=== PATIENT | male | born 1950 | race Caucasian/White ===

== ENCOUNTER 2017-05-23 15:39 | Emergency (ER) | payer MEDICARE ==
[~2017-05-23] VITALS: Ht 172.7 cm; Wt 95.3 kg
--- NOTE | 2017-05-23 16:12 | Emergency Room Report ---
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 N Clinical Suspician of Infection? N Mental Status: 1 - Regular (Normal Baseline) Sepsis Risk:Low Sepsis Risk Have you (or family members/close friends) recently traveled outside the [place]? N If Yes, where/when: Have you had exposure to infectious disease within the past month? N TB? Other? Specify: Patient with diffuse myalgias, five family members with strep pharyngitis. He has progressively felt bad since about noon today, and no relief of myalgias and diffuse concomitant cephalgia with ES Tylenol. No vomiting. No chest pain. No fever or diaphoresis. No syncope or palpitations. Left ear feels full. His daughter thinks he looks SOB,but he does not c/o SOB or cough. No calf pain. No acute unilateral sx. ALLERGIES Coded Allergies: No Known Allergies (05/23/17) Home Medications Reported Medications METFORMIN HCL (Metformin) 1,000 MG PO BID Losartan Potassium (Losartan 100MG) 100 MG PO DAILY Levothyroxine Sodium (Synthroid 0.05MG) 0.05 MG PO DAILY Simvastatin (Simvastatin 40MG Tab) 40 MG PO QHS Atenolol (Atenolol) 12.5 MG PO DAILY PAROXETINE HCL (Paxil) 20 MG PO DAILY Canagliflozin (Invokana) 300 MG PO DAILY Aspirin (Aspi-Cor) 162 MG PO DAILY INSULIN NPH HUM/REG INSULIN HM (Novolin 70-30 100 Unit/Ml Vial) 20 UNITS SC BID History Medical History General CAD? No Angina: No FL: No Hypertension? Yes Hyperlipidemia? Yes CHF? No DVT? No PE? No COPD? No Asthma? No Anemia? No GERD? No Gastric ulcers? No GI Bleed? No Hernia? No Thyroid Problems? Yes Hypothyroidism? Yes CVA? No Seizures? No Diabetes? Yes Insulin Dependent: Yes Insulin Pump: No Home FSBS? Yes Renal Insuffiency? No End Stage Renal Disease? No UTI? No Stones? Yes BPH? No GB Disease: No Nephritic Syndrome? No Asplenia? No Hepatitis? Yes Sickle Cell Disease? No Arthritis? Yes Migraines? No Cataracts? No Glaucoma? No MRSA? No HIV? No TB? No Anxiety? No Depression? Yes Cancer? No More? No Immunization Hx DT/Tetanus 1-4 Years Ago Flu 2016-17FSN Pneumonia Received In Past Surgical Hx Previous Surgery?Y TONSILLECTOMY LEFT ROTATOR CUFF REPAIR RIGHT ROTATOR CUFF REPAIR Social History Alcohol Alcohol: No Review of Systems All Other Systems Reviewed and Negative Constitutional see HPI, malaise ENT see HPI. Musculoskeletal see HPI Physical Exam Vital Signs Vital Signs Date Time Temp Pulse Resp B/P Pulse O2 O2 Flow FiO2 Ox Delivery Rate 05/23 1912 82 16 129/70 93 05/23 191 86 20 129/70 94 05/23 1832 16 05/23 1807 82 16 138/71 94 05/23 1658 90 16 123/75 95 05/23 1545 98.8 90 16 147/78 92 General Appearance normal appearance, WD/WN, no apparent distress Eye Exam - bilateral eye normal exam, bilateral eye PERRL, bilateral eye EOMI Ear, Nose, Throat hearing grossly normal, normal ENT inspection, normal pharynx (OP wet) Neck normal inspection, non-tender, supple, full range of motion (no meningismus ) Respiratory Status Yes: trachea midline, chest symmetrical, non tender chest. No: respiratory distress, tender on palpation, use of accessory muscles, pain on inspiration, pain on expiration, productive cough, non productive cough. Lung Sounds bilateral: normal breath sounds, lungs clear. 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 Glascow Coma Scale Glascow Coma Scale Response Value EYE response: 4 Spontaneously 4 MOTOR response: 6 OBEYS 6 VERBAL response: 5 Oriented & Converses 5 Total 15 Reflexes Reflexes normal Yes DTR 2+ ankle (R), 2+ ankle (L) Skin intact, normal color (no petechiae or purpura) Lymphatic no adenopathy Medical Decision Making LABS/Meds/Orders Pt receiving controlled substance in ED? No Results/Orders Laboratory Tests 05/23/17 1705: Urine Color YELLOW, Urine Appearance CLEAR, Urine pH 5.5, Ur Specific [place] 1.015, Urine Protein NEGATIVE, Urine Ketones NEGATIVE, Urine Blood NEGATIVE, Urine Nitrate NEGATIVE, Urine Bilirubin NEGATIVE, Urine Urobilinogen 0.2, Ur Leukocyte Esterase NEGATIVE, Urine RBC OCC, Urine WBC NONE, Ur Squamous Epith Cells NONE, Urine Bacteria NONE, Urine Glucose 3+ H 05/23/17 1605: Lactic Acid 1.7 05/23/17 1600: Sodium 138, Potassium 4.1, Chloride 103, Carbon Dioxide 25, BUN 19 H, Creatinine 1.1, Estimated Creat Clear 87, Estimated GFR (MDRD) 67, Glucose 158 H, Calcium 8.6, Total Bilirubin 0.4, AST 11 L, ALT 21, Alkaline Phosphatase 85, Creatine Kinase 186, CK-MB (CK-2) Rel Index 0.3, CK and CKMB Interp < 0.5, Troponin I < 0.02, Total Protein 7.7, Albumin 3.9, Globulin 3.8 H, Albumin/ Globulin Ratio 1.0 L, WBC 10.1, RBC 5.11, Hgb 14.8, Hct 44.8, MCV 87.5, RDW 13.2, Plt Count 275, MPV 7.5, Gran % 92.7 H, Gran # 9.4 H, Total Counted 100, Lymphocytes % 3.0 L, Monocytes % 3.0, Eosinophils % 1.0, Basophils % 0.3, Neutrophils 92 H, Lymphocytes (Manual) 4 L, Lymphocytes # 0.3 L, Monocytes ( Manual) 3, Monocytes # 0.3, Eosinophils # 0.1, Eosinophils # (Manual) 1, Basophils # 0.0, Platelet Estimate NORMAL, PUBS MCHC 33.0, MCH 28.8, Influenza Type A Ag NOT DETECTED, Influenza Type B Ag NOT DETECTED Current Medication Orders Sig/Corey Start time Last Medication Dose Route Stop Time Status Admin Ketorolac 15 MG ONCE ONE 05/23 1830 DC 05/23 Tromethamine IV 05/23 1831 1832 Ketorolac 0 .STK-MED ONE 05/23 1828 DC Tromethamine .ROUTE Sodium Chloride 10 ML PRN PRN 05/23 1615 AC IV 05/24 1605 Orders Procedure Date/time Status DIET-NOTHING BY MOUTH 05/23 D Active LACTIC ACID 05/23 1809 Complete ELECTROCARDIOGRAM REQUEST 05/[address] HEAD REQ 05/23 1606 Complete IV SALINE LOCK 05/23 1606 Active CULTURE, BLOOD 05/23 1606 Active URINALYSIS/COMPLETE 05/23 1606 Complete STREP SCREEN THROAT 05/23 1606 Complete INFLUENZA A&B ANTIGENS 05/23 1606 Complete CBC WITH AUTO DIFF 05/23 1606 Complete CARDIAC ENZYMES 05/23 1606 Complete CHEM 12 PROFILE 05/23 1606 Complete CULTURE, THROAT 05/23 1600 Active DIFFERENTIAL-WBC 05/23 1600 Complete 12 LEAD EKG-JAYME (INITIAL) 05/23 UNK Active CM/EKG CM/EKG EKG rate, NSR, rhythm, no evid. of ischemic chgs, no ectopy, normal QRS, normal MA, normal EKG XRAY/CT/US XRAY/CT/US XRAY chest XR interpretation by reviewed by me Xray Results normal/NAD (CM neg acute per radiology) CT head CT interpretation by reviewed by me Time results known: 1822 CT Results abnormal (sphenoid sinusitis neg acute) Progress ED Progress Notes 1 Date 05/23/17 Time 181 Comment Patient able to ambulate to bathroom. Feeling somewhat better, but has a temp of 99. Toradol IV. CT shows sinusitis. ED Progress Notes 2 Date 05/23/17 Time 1824 Comment Patient sitting up drinking water, no complaints, neurologically intact, no meningismus, no cephalgia, has not yet received Toradol IV. Departure Departure Time of Disposition 1924 Disposition DC Home or Self Care(routine) Clinical Impression Primary Impression: Sphenoid sinusitis Qualifiers: Chronicity: acute Recurrence: non-recurrent Qualified Code: J01.30 - Acute sphenoidal sinusitis, unspecified Secondary Impressions: Cephalgia Qualifiers: Headache type: unspecified Headache chronicity pattern: unspecified pattern Intractability: not intractable Qualified Code: R51 - Headache Myalgia Condition STABLE Referrals Lobo Gallegos MD Additional Instructions See Dr. Gallegos for follow up in one day; Rx Augmentin and Naproxen Discharge Counseling Counseled pt/family regarding diagnosis, test results, medications/RX, home care, follow up needs Prescriptions Current Visit Scripts Amoxicillin/Potassium Clav (Augmentin 875-125 Tablet) 1 EACH PO BID #20 TAB NAPROXEN (NAPROXEN 500MG TAB) 500 MG PO BIDP PRN pain #10 TAB ED Critical Care Critical Care No at 1926
[2017-05-23 16:39] LABS: HEMOGLOBIN 14.8 g/dL (14.1-18.0); LYMPH # 0.3 K/mm3 (0.7-4.5)
[2017-05-23 16:42] LABS: STREP SCREEN (RAPID) NEGATIVE
[2017-05-23 16:58] LABS: BUN 19 mg/dL (7-18)
[2017-05-23 17:04] LABS: GFR (ESTIMATED) 67 ML/MIN (>60)
[2017-05-23 17:14] LABS: NEUTROPHILS 92 % (42-76)
--- NOTE | 2017-05-23 17:16 | RADIOLOGY REPORT PS360 ---
CT HEAD W/O CONTRAST HISTORY: MAILAISE,MYALGIAS CEPHALGIA GEN WEAKNESS ORDERING PHYSICIAN: Sandra West MD PATIENT AGE: 66 years COMPARISON: None TECHNIQUE: Axial images obtained without contrast. Brain and bone windows reviewed. FINDINGS: No midline shift, mass effect, intracranial hemorrhage, hydrocephalus, or extra-axial fluid collection is evident. There is mild generalized atrophy with nonspecific calcification within the right basal ganglia. The calvarium has an unremarkable appearance. No mastoid effusion. There is opacification of the left aspect of the sphenoid sinus. IMPRESSION: 1. No acute intracranial findings. 2. Left sphenoid sinus disease.
--- NOTE | 2017-05-23 17:52 | RADIOLOGY REPORT PS360 ---
CHEST-PORTABLE HISTORY: malaise myalgias ORDERING PHYSICIAN: Sandra West MD PATIENT AGE: 66 years COMPARISON: 05/19/2007 FINDINGS: There are low lung volumes. There is mild cardiomegaly without failure. No lobar consolidation or collapse evident. Vascular carotid is present in the lung bases. No acute bony anomalies. IMPRESSION: Cardiomegaly, no acute finding
[2017-05-23 17:59] LABS: URINE BILIRUBIN - DIPSTICK NEGATIVE (NEG); URINE BLOOD NEGATIVE (NEG)
[2017-05-23 19:46] VITALS: BP 138/81
--- OUTSIDE RECORDS SUMMARY | 2017-06-15 05:17 | External Medical Summary Rpt ---
Author Author [employer] Organization [employer] Address Unknown Phone Unavailable Purpose Continuity of Care Document - through 2016
--- OUTSIDE RECORDS SUMMARY | 2017-06-15 05:17 | External Medical Summary Rpt ---
Author Author , YASIR TURKKERI Address Unknown Phone [email or web address] Purpose Continuity of Care Document - 10-15-2016 through 2016 Results Labs Lab Lab Date Result Refere Interp Status Commen Order Detail nces retati t Range on Urinalysis dipstick W Reflex Microscopic panel in Urine (05-23-2017 17:05) Bacteri 05-23- NONE O complet a 017 ed [Presen 17:05 ce] in Urine sedimen t by Light microsc opy Erythro 05-23- OCC 0 complet cytes 017 ed [Presen 17:05 ce] in Urine sedimen t by Light microsc opy Epithel NONE OCC complet ial 017 ed cells.s 17:05 quamous [Presen ce] in Urine sedimen t by Microsc opy high power field Urinalysis dipstick W Reflex Microscopic panel in Urine (05-23-2017 17:05) Appeara CLEAR CLEAR complet nce of 017 ed Urine 17:05 Bilirub 05-23- NEGATIV NEG complet in 017 E ed [Presen 17:05 ce] in Urine by Test strip Erythro NEGATIV NEG complet cytes 017 E ed [Presen 17:05 ce] in Urine Color YELLOW YELLOW complet of 017 ed Urine 17:05 Ketones 05-23-2 NEGATIV NEG complet 017 E ed [Presen 17:05 ce] in Urine by Automat ed test strip Mucus 05-23-2 NEGATIV NEG complet [Presen 017 E ed ce] in 17:05 Urine sedimen t by Light microsc opy Nitrite 05-23-2 NEGATIV NEG complet 017 E ed [Presen 17:05 ce] in Urine by Test strip Urobili 05-23- 0.2 NEG complet nogen 017 ed [Presen 17:05 ce] in Urine by Test strip Differential panel, method unspecified - (05-23-2017 16:00) LYMPH 09-18-2 4 % 10% - Low complet 017 50% ed 16:00 Platele NORMAL complet ts 017 ed [Presen 16:00 ce] in Blood by Light microsc opy Influenza virus A+B Ag [Presence] in Unspecified specimen (05-23-2017 16:00) Influen NOT NOT complet za 017 DETECTE DETECTD ed virus A 16:00 D Ag [Presen ce] in Unspeci fied specime n Influen NOT NOT complet za 017 DETECTE DETECTD ed virus B 16:00 D Ag [Presen ce] in Unspeci fied specime n Streptococcus pyogenes Ag [Presence] in Unspecified specimen (05-23-2017 16:00) Strepto NEGATIV complet coccus 017 E ed pyogene 16:00 s Ag [Presen ce] in Unspeci fied specime n Bas Metab 2000 Pnl SerPl (10-15-2016 11:22) Comment: Meter: [id number] 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
--- OUTSIDE RECORDS SUMMARY | 2017-06-15 05:17 | External Medical Summary Rpt ---
Author Author [employer], [employer] Organization [employer] Address Unknown Phone Unavailable Results Urinalysis dipstick W Reflex Microscopic panel in Urine Observa Value Referen Units Interpr Notes Date tion ce etation Range Appeara CLEAR CLEAR No No No Sep 18 nce of informa informa informa 2017 Urine tion in tion in tion in 5:05 PM source source source data data data Bacteri NONE O No No No Sep 18 a informa informa informa 2017 [Presen tion in tion in tion in 5:05 PM ce] in source source source Urine data data data sedimen t by Light microsc opy Bilirub NEGATIV NEG No No No Sep 18 in E informa informa informa 2017 [Presen tion in tion in tion in 5:05 PM ce] in source source source Urine data data data by Test strip Erythro NEGATIV NEG No No No Sep 18 cytes E informa informa informa 2017 [Presen tion in tion in tion in 5:05 PM ce] in source source source Urine data data data Color YELLOW YELLOW No No No Sep 18 of informa informa informa 2017 Urine tion in tion in tion in 5:05 PM source source source data data data Glucose NEG No High No Sep 18 [Mass/vol informati informati 2017 5:05 ume] in on in on in PM Urine by source source Test data data strip Ketones NEGATIV NEG mg/dL No No Sep 18 E informa informa 2017 [Presen tion in tion in 5:05 PM ce] in source source Urine data data by Automat ed test strip Mucus NEGATIV NEG No No No Sep 18 [Presen E informa informa informa 2017 ce] in tion in tion in tion in 5:05 PM Urine source source source sedimen data data data t by Light microsc opy Nitrite NEGATIV NEG No No No Sep 18 E informa informa informa 2017 [Presen tion in tion in tion in 5:05 PM ce] in source source source Urine data data data by Test strip pH of 5.0 - 8.5 No Normal No Sep 18 Urine informati informati 2017 5:05 on in on in PM source source data data Protein NEG mg/dL No No Sep 18 [Mass/vol informati informati 2017 5:05 ume] in on in on in PM Urine by source source Automated data data test strip Erythro OCC 0 rbc/hpf No No Sep 18 cytes informa informa 2017 [Presen tion in tion in 5:05 PM ce] in source source Urine data data sedimen t by Light microsc opy Specific 1.005 - No Normal No Sep 18 gravity 1.030 informati informati 2017 5:05 of Urine on in on in PM source source data data Epithel NONE OCC #/hpf No No Sep 18 ial informa informa 2017 cells.s tion in tion in 5:05 PM quamous source source data data [Presen ce] in Urine sedimen t by Microsc opy high power field Urobili 0.2 NEG E.U./dL No No Sep 18 nogen informa informa 2017 [Presen tion in tion in 5:05 PM ce] in source source Urine data data by Test strip Leukocyte O wbc/hpf No No Sep 18 s informati informati 2017 5:05 [#/volume on in on in PM ] in source source Urine data data Urinalysis dipstick W Reflex Microscopic panel in Urine Observa Value Referen Units Interpr Notes Date tion ce etation Range Appeara CLEAR CLEAR No No No Sep 18 nce of informa informa informa 2017 Urine tion in tion in tion in 5:05 PM source source source data data data Bilirub NEGATIV NEG No No No Sep 18 in E informa informa informa 2017 [Presen tion in tion in tion in 5:05 PM ce] in source source source Urine data data data by Test strip Erythro NEGATIV NEG No No No Sep 18 cytes E informa informa informa 2017 [Presen tion in tion in tion in 5:05 PM ce] in source source source Urine data data data Color YELLOW YELLOW No No No Sep 18 of informa informa informa 2017 Urine tion in tion in tion in 5:05 PM source source source data data data Glucose NEG No High No Sep 18 [Mass/vol informati informati 2017 5:05 ume] in on in on in PM Urine by source source Test data data strip Ketones NEGATIV NEG mg/dL No No Sep 18 E informa informa 2017 [Presen tion in tion in 5:05 PM ce] in source source Urine data data by Automat ed test strip Mucus NEGATIV NEG No No No Sep 18 [Presen E informa informa informa 2016 ce] in tion in tion in tion in 5:05 PM Urine source source source sedimen data data data t by Light microsc opy Nitrite NEGATIV NEG No No No Sep 18 E informa informa informa 2016 [Presen tion in tion in tion in 5:05 PM ce] in source source source Urine data data data by Test strip pH of 5.0 - 8.5 No Normal No Sep 18 Urine informati informati 2016 5:05 on in on in PM source source data data Protein NEG mg/dL No No Sep 18 [Mass/vol informati informati 2016 5:05 ume] in on in on in PM Urine by source source Automated data data test strip Specific 1.005 - No Normal No Sep 18 gravity 1.030 informati informati 2016 5:05 of Urine on in on in PM source source data data Urobili 0.2 NEG E.U./dL No No Sep 18 nogen informa informa 2016 [Presen tion in tion in 5:05 PM ce] in source source Urine data data by Test strip Lactate [Moles/volume] in Blood Observa Value Referen Units Interpr Notes Date tion ce etation Range Lactate 0.4 - 2.0 mmol/L Normal No Sep 18 [Moles/vo informati 2016 4:05 lume] in on in PM Blood source data CBC W Auto Differential panel in Blood Observa Value Referen Units Interpr Notes Date tion ce etation Range Basophils 0 - 0.2 K/MM3 Normal No Sep 18 informati 2017 4:00 [#/volume on in PM ] in source Blood by data Automated count Basophils 0.1 - 2.0 % Normal No Sep 18 /100 informati 2016 4:00 leukocyte on in PM s in source Blood by data Automated count Eosinophi 0.0 - 0.4 K/mm3 Normal No Sep 18 ls informati 2017 4:00 [#/volume on in PM ] in source Blood by data Automated count Eosinophi 0.1 - % Normal No Sep 18 ls/100 12.0 informati 2016 4:00 leukocyte on in PM s in source Blood by data Automated count Granulocy 1.3 - 8.0 K/mm3 High No Sep 18 reanna informati 2016 4:00 [#/volume on in PM ] in source Blood by data Automated count Granulocy 37.0 - % High No Sep 18 reanna/100 80.0 informati 2016 4:00 leukocyte on in PM s in source Blood by data Automated count Hematocri 42.0 - % Normal No Sep 18 t [Volume 52.0 informati 2016 4:00 on in PM Fraction] source of Blood data Hemoglobi 14.1 - g/dL Normal No Sep 18 n 18.0 informati 2016 4:00 [Mass/vol on in PM ume] in source Blood data Lymphocyt 0.7 - 4.5 K/mm3 Low No Sep 18 es informati 2017 4:00 [#/volume on in PM ] in source Unspecifi data ed specimen by Automated count Lymphocyt 10 - 50 % Low No Sep 18 es informati 2016 4:00 [#/volume on in PM ] in source Unspecifi data ed specimen by Automated count Erythrocy 27 - 31.2 pg Normal No Sep 18 te mean informati 2016 4:00 corpuscul on in PM ar source hemoglobi data n [Entitic mass] Erythrocy 31.8 - g/dl Normal No Sep 18 te mean 35.4 informati 2016 4:00 corpuscul on in PM ar source hemoglobi data n concentra tion [Mass/vol ume] by Automated count Erythrocy 82.2 - fl Normal No Sep 18 te mean 97.8 informati 2016 4:00 corpuscul on in PM ar volume source [Entitic data volume] by Automated count Monocytes 0.1 - 1.0 K/mm3 Normal No Sep 18 informati 2016 4:00 [#/volume on in PM ] in source Blood by data Automated count Monocytes 1.7 - 9.3 % Normal No Sep 18 /100 informati 2016 4:00 leukocyte on in PM s in source Blood by data Automated count Platelet 7.4 - fl Normal No Sep 18 mean 10.4 informati 2016 4:00 volume on in PM [Entitic source volume] data in Blood by Automated count Platelets 142 - 424 K/mm3 Normal No Sep 18 inform 2017 4:00 [#/volume on in PM ] in source Blood data Erythrocy 4.6 - 6.2 M/mm3 Normal No Sep 18 reanna informati 2016 4:00 [#/volume on in PM ] in source Amniotic data fluid Erythrocy 11.5 - % Normal No Sep 18 te 17.5 informati 2016 4:00 distribut on in PM ion width source [Entitic data volume] by Automated count Leukocyte 4.8 - K/MM3 Normal No Sep 18 s 10.8 informati 2016 4:00 [#/volume on in PM ] in source Blood data Differential panel, method unspecified - Observa Value Referen Units Interpr Notes Date tion ce etation Range Eosinophi 0 - 3 % Normal No Sep 18 ls/100 informati 2016 4:00 leukocyte on in PM s in source Blood by data Manual count LYMPH 4 10 - 50 % Low No Sep 18 2016 tion in 4:00 PM source data Monocytes 2 - 9 % Normal No Sep 18 /100 informati 2017 4:00 leukocyte on in PM s in source Blood by data Automated count Platele NORMAL No No No No Sep 18 ts informa informa informa informa 2016 [Presen tion in tion in tion in tion in 4:00 PM ce] in source source source source Blood data data data data by Light microsc opy Neutrophi 42 - 76 % High No Sep 18 ls informati 2016 4:00 [#/volume on in PM ] in source Blood by data Automated count Cells No #CELLS No No Sep 18 Counted informati informati informati 2016 4:00 Total [#] on in on in on in PM in Blood source source source data data data Influenza virus A+B Ag [Presence] in Unspecified specimen Observa Value Referen Units Interpr Notes Date tion ce etation Range Influen NOT NOT No No No Sep 18 za DETECTE DETECTD informa informa informa 2017 virus A D tion in tion in tion in 4:00 PM Ag source source source [Presen data data data ce] in Unspeci fied specime n Influen NOT NOT No No No Sep 18 za DETECTE DETECTD informa informa informa 2017 virus B D tion in tion in tion in 4:00 PM Ag source source source [Presen data data data ce] in Unspeci fied specime n Streptococcus pyogenes Ag [Presence] in Unspecified specimen Observa Value Referen Units Interpr Notes Date tion ce etation Range Strepto NEGATIV No No No No Sep 18 coccus E informa informa informa informa 2017 pyogene tion in tion in tion in tion in 4:00 PM s Ag source source source source [Presen data data data data ce] in Unspeci fied specime n
--- OUTSIDE RECORDS SUMMARY | 2017-06-15 05:17 | External Medical Summary Rpt ---
Demographics Preferred Language Lithuanian Marital Status Unknown [employer] Affiliation Unknown Race Unknown Ethnic Group Unknown Author Author YASIR Address Unknown Phone Immunization No patient found.
--- OUTSIDE RECORDS SUMMARY | 2017-06-15 05:17 | External Medical Summary Rpt ---
Demographics Preferred Language Vietnamese Marital Status Unknown [employer] Affiliation Unknown Race Unknown Ethnic Group Unknown Author Author YASIR Address Unknown Phone Immunization No patient found.
--- OUTSIDE RECORDS SUMMARY | 2017-06-15 05:17 | External Medical Summary Rpt ---
Author Author , YASIR TURKKERI Address Unknown Phone [email or web address] Purpose Continuity of Care Document - 10-15-2016 [...] 2000 Pnl SerPl (10-15-2016 11:22) Comment: Meter: [id number] Plug Stitcher: [id number] [facility] Glucose 212 70-130 complet BldC 017 mg/dL ed Glucomt 11:22 r-mCnc Potassium Bld-sCnc (10-15-2016 11:02) Potassi 4.29 3.5-5.3 complet um 017 mmol/L ed BldA-sC 11:02 nc
== END 2017-05-23 19:46 | disposition home or self-care (01) ==
LOC: ER 15:39
PROVIDERS: Emergency Medicine
DX: J01.30 Acute sphenoidal sinusitis, unspecified (principal); R51 Headache; I10 Essential (primary) hypertension; E78.5 Hyperlipidemia, unspecified; E03.9 Hypothyroidism, unspecified; E11.9 Type 2 diabetes mellitus without complications; Z79.4 Long term (current) use of insulin; Z79.82 Long term (current) use of aspirin; Z79.899 Other long term (current) drug therapy

== ENCOUNTER → 2017-05-27 | Outpatient (CLI) | payer MEDICARE ==
[~2017-05-27] MED LIST: ASPI-COR81 M1 PO; ATENOLOL25 MG PO; AUGMENTIN 875-1 EACH PO; INVOKANA300 MG PO; LORATADINE 10MG10 M1 PO; LOSARTAN POTAS100 MG PO; METFORMIN1000 MG PO; MOTRIN600 M1 PO; NAPROXEN SODIU500 MG PO; NOVOLIN 70/30 710 ML SC; OMEPRAZOLE40 MG PO; PAXIL20 M1 PO; SIMVASTATIN40 MG PO; SYNTHROID 0.00.05 MG PO; VICTOZA6 MG/ML SC
--- NOTE | 2017-05-27 13:31 | RADIOLOGY REPORT PS360 ---
History and Indications: Hypertension, diabetes, family history, chest pain, shortness of breath, fatigue and abnormal EKG. Procedure: Patient exercised on Kalyan protocol 8 minutes and 30 seconds, resting heart rate was 57 bpm, resting blood pressure 151/81, with exercise maximum heart rate achieved was 127 bpm which is equal to 85% of the maximum predicted heart rate, and the blood pressure was 207/91, the patient has adequate exercise capacity achieved 8.7mets of workload on treadmill, the blood pressure response to exercise was hypertensive. Electrocardiogram: Resting electrocardiogram showed sinus bradycardia nonspecific ST-T changes, with exercise occasional premature ventricular complexes seen additional millimeters ST segment depression noted from the baseline EKG. The EKG portion of the exercise Myoview is nondiagnostic secondary to baseline abnormal EKG. Cardiac stress and resting SPECT images: Cardiac stress and rest SPECT images were obtained using technetium 99 Myoview 10.8 mCi at rest and 29.8 mCi at stress, gated SPECT further analysis of segmental wall motion and calculation of the ejection fraction also done. Cardiac stress and rest SPECT images show uniform myocardial activity without any segmental perfusion abnormality, computer derived ejection fraction over 65% with no obvious regional wall motion abnormality, right ventricle is mildly enlarged with normal contractility. Conclusion: 1. The EKG portion of the exercise Myoview is nondiagnostic due to baseline abnormal EKG. Patient has adequate exercise capacity achieved 8.7mets of workload on treadmill, the blood pressure response to exercise was hypertensive, there was no exercise-induced chest discomfort, test was started due to shortness of breath. 2. No obvious sonographic evidence of reversible ischemia seen. Computer derived ejection fraction is over 65% with no obvious regional wall motion abnormality, right ventricle is mildly enlarged with normal contractility.
--- NOTE | 2017-05-27 13:46 | RADIOLOGY REPORT PS360 ---
PROCEDURE: 2-D M-mode and color Doppler study INDICATIONS FOR THE TEST: Chest pain COPD Heart Murmur Tobacco Smoking Palpitations FatigueX Syncope Edema HypertensionXDiabetes MellitusX Rheumatic Fever SOBXDOE ObesityXHyperlipidemia Family History HD Additional History PATIENT INFORMATION HEIGHT: 66 WEIGHT:210 GENDER: Male B/P:151/81 2-D/M-MODE INTERPRETATION: 2-D MEASUREMENTS OBSERVED VALUES IN CMS Right Ventricular Dimension (RVDd) 3.0 Interventricular Septum (Thickness)(IVsd) 1.2 Left Ventricular Internal Dimensions(LVIDd) 4.2 Left Ventricular Posterior Wall (Thickness)(LVPWd) 1.2 Aortic Root 4.1 Aortic Cusp Separation 2.3 Left Atrial Dimensions (LAD) 3.9 2D 1. Left atrium is qualitatively mildly enlarged, left ventricle is normal size, there is mild concentric left ventricular hypertrophy present, visually estimated ejection fraction of 55% with no obvious regional wall motion abnormality. 2. The right atrium is normal size, right ventricle is mildly enlarged with normal contractility. 3. The aortic valve is minimally thickened and calcified, leaflet continue to display mobility. 4. The mitral and tricuspid valvular minimally thickened. 5. The pulmonic valve is poorly visualized. 6. No significant pericardial effusion noted. DOPPLER INTERROGATION: Doppler interrogation of the aortic, mitral and tricuspid valvular presence of mild mitral and tricuspid regurgitation, tricuspid regurgitant jet velocity is insufficient for calculation of the right ventricular systolic pressure, grade 1 diastolic dysfunction seen without tissue Doppler evidence of raised left atrial pressure. CONCLUSION: 1. Mildly enlarged left atrium, normal left ventricular size, mild concentric left ventricular hypertrophy, visually estimated ejection fraction 55% with no obvious regional wall motion abnormality, grade 1 diastolic dysfunction seen without tissue Doppler evidence of raised left atrial pressure. 2. Mildly enlarged right ventricle with normal contractility. 3. Mild mitral and tricuspid regurgitation. 4. No significant pericardial effusion noted.
== END ==
LOC: RAD 05:52
DX: R06.02 Shortness of breath (principal); R07.9 Chest pain, unspecified; E11.9 Type 2 diabetes mellitus without complications; E78.5 Hyperlipidemia, unspecified; I10 Essential (primary) hypertension
CPT/HCPCS: A9502

== ENCOUNTER → 2017-06-24 | Outpatient (CLI) | payer MEDICARE | LOC: RT 13:55 | DX: R09.02 Hypoxemia (principal) ==